=== PATIENT | male | born 1990 | race Caucasian/White ===

== ENCOUNTER 2018-09-26 23:30 | Emergency (ER) | payer OTHER ==
--- NOTE | 2018-09-27 01:10 | ER ---
Nurse's Notes [facility] Name: Sameer Gaona Age: 28 yrs Sex: Male : 1990 Arrival Date: 09/26/2018 Time: 23:37 Bed 18 Private MD: Diagnosis: Influenza due to identified novel influenza A virus Presentation: 09/26 23:37 Presenting complaint: Patient states: Flu like symptoms that began yesterday, states lp1 feeling like its harder to get a deep breath; Fever of 101 at 0400 today; diarrhea, nausea, nasal congestion. Transition of care: patient was not received from another setting of care. Onset of symptoms was September 25, 2018. Risk Assessment: Do you want to hurt yourself or someone else? Patient reports no desire to harm self or others. Initial Sepsis Screen: Does the patient meet any 2 criteria? No. Patient's initial sepsis screen is negative. Does the patient have a suspected source of infection? No. Patient's initial sepsis screen is negative. Care prior to arrival: None. 23:37 Method Of Arrival: Ambulatory lp1 23:37 Acuity: LAINEY 4 lp1 Historical: - Allergies: 23:39 No Known Allergies; lp1 - Home Meds: 23:39 None [Active]; lp1 - PMHx: 23:39 Asthma; lp1 - PSHx: 23:39 None; lp1 - Immunization history:: Adult Immunizations up to date. - Social history:: Smoking status: Patient/guardian denies using tobacco. - Ebola Screening: : No symptoms or risks identified at this time. Screenin:45 Abuse screen: Denies threats or abuse. Denies injuries from another. Nutritional ed1 screening: No deficits noted. Tuberculosis screening: No symptoms or risk factors identified. Fall Risk None identified. Assessment: 23:45 General: Appears in no apparent distress. Behavior is calm, cooperative, Reports fever ed1 for 12-24 hours, feeling ill for 1-2 days. Pain: Denies pain. Neuro: Level of Consciousness is awake, alert, obeys commands, Oriented to person, place, time, situation. Cardiovascular: Denies chest pain, Heart tones S1 S2 present. Respiratory: Reports shortness of breath cough that is Airway is patent Respiratory effort is even, unlabored, Respiratory pattern is regular, symmetrical, Breath sounds are clear bilaterally. GI: No signs and/or symptoms were reported involving the gastrointestinal system. : No signs and/or symptoms were reported regarding the genitourinary system. EENT: Oral mucosa is moist. Derm: Skin is intact, is healthy with good turgor, Skin is dry, Skin is normal, Skin temperature is warm. 03 01:07 Reassessment: Patient appears in no apparent distress at this time. No changes from ed1 previously documented assessment. Patient and/or family updated on plan of care and expected duration. Pain level reassessed. Patient is alert, oriented x 3, equal unlabored respirations, skin warm/dry/pink. Patient states symptoms have not improved. Vital Signs: 09/26 23:39 BP 130 / 84; Pulse 88; Resp 18; Temp 98.7(O); Pulse Ox 98% on R/A; Weight 65.77 kg (R); lp1 Height 5 ft. 10 in. (177.80 cm); Pain 0/10; 09/27 01:07 BP 131 / 84; Pulse 81; Resp 16; Pulse Ox 99% on R/A; Pain 0/10; ed1 0305 23:39 Body Mass Index 20.81 (65.77 kg, 177.80 cm) lp1 ED Course: 03 23:37 Patient arrived in ED. ag3 23:39 Triage completed. lp1 23:39 Arm band placed on. lp1 23:41 Fanny Suero, RN is Primary Nurse. ed1 23:45 Patient has correct armband on for positive identification. ed1 23:48 Wiley Whiting PA is PHCP. cp 23:48 Wiley Beatty MD is Attending Physician. cp 03 00:06 Flu and/or RSV swab sent to lab. Strep swab sent to lab. lt1 00:42 Strep Sent. ed1 00:42 Influenza Screen (a \T\ B) Sent. ed1 01:20 No provider procedures requiring assistance completed. Patient did not have IV access ed1 during this emergency room visit. Administered Medications: 01:18 Drug: Tamiflu 75 mg Route: PO; ed1 01:18 Follow up: Response: Medication administered at discharge. ed1 Outcome: 01:10 Discharge ordered by . cp 01:20 Discharged to home ambulatory. ed1 01:20 Condition: good 01:20 Discharge instructions given to patient, Instructed on discharge instructions, follow up and referral plans. medication usage, Demonstrated understanding of instructions, follow-up care, medications, Prescriptions given X 2. 01:21 Patient left the ED. ed1 Signatures: Fanny Suero RN RN ed1 Katherine Uribe RN RN lp1 Wiley Whiting PA PA cp Gomez, Alice ag3 Angela Dos Santos lt1
--- NOTE | 2018-09-27 01:10 | EDPHYS ---
Physician Documentation [facility] Name: Sameer Gaona Age: 28 yrs Sex: Male : 1990 Arrival Date: 09/26/2018 Time: 23:37 Bed 18 Private MD: ED Physician Wiley Beatty HPI: 09/27 00:05 This 28 yrs old Male presents to ER via Ambulatory with complaints of Flu cp Symptoms. 00:05 The patient or guardian reports cough, that is intermittent, flu symptoms, low-grade cp fever, body aches. 00:05 Onset: The symptoms/episode began/occurred yesterday. Associated signs and symptoms: cp Pertinent positives: diarrhea, sore throat, Pertinent negatives: chest pain, vomiting. Historical: - Allergies: 09/26 23:39 No Known Allergies; lp1 - Home Meds: 23:39 None [Active]; lp1 - PMHx: 23:39 Asthma; lp1 - PSHx: 23:39 None; lp1 - Immunization history:: Adult Immunizations up to date. - Social history:: Smoking status: Patient/guardian denies using tobacco. - Ebola Screening: : No symptoms or risks identified at this time. ROS: 09/27 00:10 Constitutional: Positive for body aches, Negative for fever, poor PO intake. cp 00:10 Eyes: Negative for injury, pain, redness, and discharge. cp 00:10 ENT: Positive for sore throat, Negative for drainage from ear(s), ear pain, sinus pain, difficulty swallowing, difficulty handling secretions. 00:10 Neck: Negative for pain with movement, pain at rest, stiffness. 00:10 Cardiovascular: Negative for chest pain. 00:10 Respiratory: Positive for cough, Negative for wheezing. 00:10 Abdomen/GI: Positive for nausea, diarrhea, Negative for abdominal pain, vomiting, constipation. 00:10 Skin: Negative for cellulitis, rash. 00:10 Neuro: Negative for altered mental status, headache. 00:10 All other systems are negative. Exam: 00:15 Constitutional: The patient appears in no acute distress, alert, awake, non-toxic, well cp developed, well nourished. 00:15 Head/Face: Normocephalic, atraumatic. cp 00:15 Eyes: Periorbital structures: appear normal, Conjunctiva: normal, no exudate, no injection, Sclera: no appreciated abnormality, Lids and lashes: appear normal, bilaterally. 00:15 ENT: External ear(s): are unremarkable, Ear canal(s): are normal, clear, TM's: bulging, is not appreciated, bilaterally, dullness, bilaterally, erythema, is not appreciated, bilaterally, Nose: is normal, Mouth: Lips: moist, Oral mucosa: moist, Posterior pharynx: Airway: no evidence of obstruction, patent, Tonsils: with erythema, no enlargement, no exudate, swelling, is not appreciated, erythema, that is moderate, exudate, is not appreciated. 00:15 Neck: ROM/movement: is normal, is supple, without pain, no range of motions limitations, no meningismus, no nuchal rigidity. 00:15 Chest/axilla: Inspection: normal, Palpation: is normal, no crepitus, no tenderness. 00:15 Cardiovascular: Rate: normal, Rhythm: regular. 00:15 Respiratory: the patient does not display signs of respiratory distress, Respirations: normal, no use of accessory muscles, no retractions, no splinting, no tachypnea, labored breathing, is not present, Breath sounds: are clear throughout, no decreased breath sounds, no stridor, no wheezing. 00:15 Abdomen/GI: Inspection: abdomen appears normal, Palpation: abdomen is soft and non-tender, in all quadrants. 00:15 Skin: cellulitis, is not appreciated, no rash present. Vital Signs: 09/26 23:39 BP 130 / 84; Pulse 88; Resp 18; Temp 98.7(O); Pulse Ox 98% on R/A; Weight 65.77 kg (R); lp1 Height 5 ft. 10 in. (177.80 cm); Pain 0/10; 09/27 01:07 BP 131 / 84; Pulse 81; Resp 16; Pulse Ox 99% on R/A; Pain 0/10; ed1 09/26 23:39 Body Mass Index 20.81 (65.77 kg, 177.80 cm) lp1 MDM: 09/26 23:48 Patient medically screened. cp 09/27 00:00 Differential Diagnosis: Bronchitis Influenza Pharyngitis Otitis Media Viral Syndrome cp Pneumonia. 01:10 Data reviewed: vital signs, nurses notes, lab test result(s), and as a result, I will cp discharge patient. 01:10 Counseling: I had a detailed discussion with the patient and/or guardian regarding: the cp historical points, exam findings, and any diagnostic results supporting the discharge/admit diagnosis, lab results, to return to the emergency department if symptoms worsen or persist or if there are any questions or concerns that arise at home. 09/26 23:58 Order name: Influenza Screen (a \T\ B) 09/26 23:58 Order name: Strep cp 09/26 23:58 Order name: Influenza Screen (A [facility] 09/26 23:58 Order name: Group A Streptococcus Rapid Sc [facility] 09/27 00:56 Order name: Throat Culture [facility] Administered Medications: 01:18 Drug: Tamiflu 75 mg Route: PO; ed1 01:18 Follow up: Response: Medication administered at discharge. ed1 Disposition: 09/27/18 01:10 Discharged to Home. Impression: Influenza due to identified novel influenza A virus. - Condition is Stable. - Discharge Instructions: Influenza, Adult. - Prescriptions for Ibuprofen 800 mg Oral Tablet - take 1 tablet by ORAL route every 8 hours As needed take with food; 30 tablet. Tamiflu 75 mg Oral Capsule - take 1 tablet by ORAL route every 12 hours for 5 days; 10 tablet. - Work release form, Medication Reconciliation Form, Thank You Letter, Antibiotic Education, Prescription Opioid Use form. - Follow up: Private Physician; When: 2 - 3 days; Reason: Worsening of condition. - Problem is new. - Symptoms are unchanged. Addendum: 09/29/2018 07:19 Co-signature as Attending Physician, Wiley Beatty MD I agree with the assessment and c murphy plan of care. Signatures: Dispatcher [employer] [facility] Wiley Beatty MD MD cha Riggs, Erika RN RN ed1 Katherine Uribe RN RN lp1 Wiley Whiting PA PA cp Corrections: (The following items were deleted from the chart) 09/27 01:21 01:10 09/27/2018 01:10 Discharged to Home. Impression: Influenza due to identified ed1 novel influenza A virus. Condition is Stable. Forms are Medication Reconciliation Form, Thank You Letter, Antibiotic Education, Prescription Opioid Use. Follow up: Private Physician; When: 2 - 3 days; Reason: Worsening of condition. Problem is new. Symptoms are unchanged. cp
[2018-09-27] MEDS ORDERED: OSELTAMIVIR 75 MG CAP ONE (01:25)
== END 2018-09-27 01:21 | disposition home or self-care (01) ==
LOC: ER 23:30
DX: J10.1 Influenza due to other identified influenza virus with other respiratory manifestations (principal)
CPT/HCPCS: 87070; 87081; 87804; 99283

== ENCOUNTER 2020-10-10 03:04 | Inpatient (IN) | payer OTHER, SELFPAY ==
[2020-10-10] MEDS ORDERED: MORPHINE 4 MG/ML SYR ONE (03:56)
[2020-10-10] MEDS ORDERED: ONDANSETRON 4 MG/2 ML VIAL ONE ×2 (03:56→12:44)
[2020-10-10] MEDS ORDERED: NA CHLORIDE 0.9% 1,000 ML ONE (03:56)
[2020-10-10 04:04] LABS: Absolute Lymphocytes (CBC) 1.3 K/uL (0.7-4.9); Basophils % 0.7 % (0-1.3); Hematocrit 44.5 % (39.6-49.0); Lymphocytes % 10.1 % (15.3-44.8); MPV 8.7 fL (7.6-11.3); RBC Red Blood Cell Count 5.14 M/uL (4.33-5.43)
[2020-10-10 04:15] LABS: Alkaline Phosphatase ND U/L (45-117)
[2020-10-10 04:38] LABS: ALT/SGPT 39 U/L (12-78); AST/SGOT 18 U/L (15-37); Albumin 4.3 g/dL (3.4-5.0); BUN Blood Urea Nitrogen 11 mg/dL (7-18); Bicarbonate 28 mmol/L (21-32); Bilirubin Direct 0.2 mg/dL (0-0.2); Bilirubin Total 0.9 mg/dL (0.2-1.0); Glucose Level 105 mg/dL (74-106); Lipase 81 U/L (73-393); Potassium 3.4 mmol/L (3.5-5.1); Protein, Total 7.8 g/dL (6.4-8.2); Sodium Level 136 mmol/L (136-145)
--- NOTE | 2020-10-10 06:16 | EDPHYS ---
Physician Documentation [facility] Name: Sameer Gaona Age: 30 yrs Sex: Male : 1990 Arrival Date: 10/10/2020 Time: 03:07 Bed 14 Private MD: ED Physician Ha Cadet HPI: 10/10 03:59 This 30 yrs old Male presents to ER via Ambulatory with complaints of mh7 Abdominal Pain. 03:59 The patient presents with abdominal pain right lower quadrant. Onset: The mh7 symptoms/episode began/occurred yesterday, at 18:00. 03:59 The symptoms do not radiate. Associated signs and symptoms: Pertinent positives: nausea mh7 and vomiting, Pertinent negatives: anorexia, blood in stools, chest pain, constipation, diarrhea, dysuria, fever, headache, hematuria, nausea, palpitations, shortness of breath, testicular pain, vomiting, vomiting blood. The symptoms are described as intermittent, vague, waxing/waning. Modifying factors: The symptoms are alleviated by nothing, the symptoms are aggravated by nothing. Severity of pain: At its worst the pain was moderate last night, in the emergency department the pain is unchanged. Historical: - Allergies: 03:26 No Known Allergies; dm5 - Home Meds: 03:26 None [Active]; dm5 - PMHx: 03:26 Asthma; dm5 - PSHx: 03:26 None; dm5 - Immunization history:: Adult Immunizations up to date. - Social history:: Smoking status: Patient denies any tobacco usage or history of. ROS: 03:59 Constitutional: Negative for fever, chills, and weight loss, Eyes: Negative for injury, mh7 pain, redness, and discharge, ENT: Negative for injury, pain, and discharge, Neck: Negative for injury, pain, and swelling, Cardiovascular: Negative for chest pain, palpitations, and edema, Respiratory: Negative for shortness of breath, cough, wheezing, and pleuritic chest pain, Back: Negative for injury and pain, : Negative for injury, bleeding, discharge, and swelling, MS/Extremity: Negative for injury and deformity, Skin: Negative for injury, rash, and discoloration, Neuro: Negative for headache, weakness, numbness, tingling, and seizure, Psych: Negative for depression, anxiety, suicide ideation, homicidal ideation, and hallucinations, Allergy/Immunology: Negative for hives, rash, and allergies, Endocrine: Negative for neck swelling, polydipsia, polyuria, polyphagia, and marked weight changes, Hematologic/Lymphatic: Negative for swollen nodes, abnormal bleeding, and unusual bruising. Exam: 03:59 Constitutional: This is a well developed, well nourished patient who is awake, alert, mh7 and in no acute distress. Head/Face: Normocephalic, atraumatic. Eyes: Pupils equal round and reactive to light, extra-ocular motions intact. Lids and lashes normal. Conjunctiva and sclera are non-icteric and not injected. Cornea within normal limits. Periorbital areas with no swelling, redness, or edema. Neck: Trachea midline, no thyromegaly or masses palpated, and no cervical lymphadenopathy. Supple, full range of motion without nuchal rigidity, or vertebral point tenderness. No Meningismus. Chest/axilla: Normal chest wall appearance and motion. Nontender with no deformity. No lesions are appreciated. Cardiovascular: Regular rate and rhythm with a normal S1 and S2. No gallops, murmurs, or rubs. Normal PMI, no JVD. No pulse deficits. Respiratory: Lungs have equal breath sounds bilaterally, clear to auscultation and percussion. No rales, rhonchi or wheezes noted. No increased work of breathing, no retractions or nasal flaring. 03:59 Back: No spinal tenderness. No costovertebral tenderness. Full range of motion. Skin: Warm, dry with normal turgor. Normal color with no rashes, no lesions, and no evidence of cellulitis. MS/ Extremity: Pulses equal, no cyanosis. Neurovascular intact. Full, normal range of motion. Neuro: Awake and alert, GCS 15, oriented to person, place, time, and situation. Cranial nerves II-XII grossly intact. Motor strength 5/5 in all extremities. Sensory grossly intact. Cerebellar exam normal. Normal gait. Psych: Awake, alert, with orientation to person, place and time. Behavior, mood, and affect are within normal limits. 03:59 Abdomen/GI: Inspection: abdomen appears normal, Bowel sounds: normal, Palpation: moderate abdominal tenderness, in the right lower quadrant, mass, is not appreciated, rebound tenderness, is not appreciated, voluntary guarding, is not appreciated, involuntary guarding, is not appreciated, no appreciated organomegaly, Rectal exam: the exam is deferred, because of patient request, Indicators: McBurney's point is not tender, Mcclure's sign is negative, Rovsing's sign is negative, Obturator sign is negative, Psoas sign is negative, Liver: no appreciated palpable abnormalities, Hernia: not appreciated. Vital Signs: 03:24 BP 127 / 88; Pulse 82; Resp 18; Temp 98.4; Pulse Ox 98% on R/A; Pain 6/10; dm5 08:34 BP 106 / 59; Pulse 84; Resp 16 S; Pulse Ox 99% on R/A; jd3 09:28 BP 117 / 64; Pulse 83; Resp 17 S; Pulse Ox 99% on R/A; jd3 MDM: 06:13 Differential diagnosis: appendicitis, bowel obstruction, diverticulitis. Data reviewed: [facility] vital signs, nurses notes, lab test result(s), amylase and lipase, CBC, electrolytes, radiologic studies, CT scan. Data interpreted: Pulse oximetry: on room air is 98 %. Interpretation: normal. Counseling: I had a detailed discussion with the patient and/or guardian regarding: the historical points, exam findings, and any diagnostic results supporting the discharge/admit diagnosis, lab results, radiology results, the need for further work-up and treatment in the hospital. Response to treatment: the patient's symptoms have markedly improved after treatment. 06:[address] [facility] 10/10 03:32 Order name: Basic Metabolic Panel; Complete Time: 05:11 [facility] 10/10 03:32 Order name: CBC with Diff; Complete Time: 04:19 [facility] 10/10 03:32 Order name: Hepatic Function; Complete Time: 05:54 [facility] 10/10 03:32 Order name: Lipase; Complete Time: 05:54 [facility] 10/10 07:05 Order name: Urine Dipstick--Ancillary (enter results) 10/10 07:05 Order name: Urine --Ancillary (enter results) 10/10 04:58 Order name: Abdomen [facility] 10/10 07:41 Order name: COVID-19 : Document "Date of Symptom Onset" if Symptomatic. 10/10 08:09 Order name: CORONAVIRUS [facility] 10/10 08:58 Order name: SARS-COV-2 RT PCR [facility] 10/10 09:57 Order name: Urine --Ancillary [facility] 10/10 09:57 Order name: Urine Dipstick-Ancillary [facility] 10/10 03:32 Order name: IV Saline Lock; Complete Time: 05:24 [facility] 10/10 03:32 Order name: Labs collected and sent; Complete Time: 05:24 [facility] 10/10 03:32 Order name: Urine Dipstick-Ancillary (obtain specimen); Complete Time: 07:04 [facility] 10/10 06:23 Order name: NPO EDMS Administered Medications: 03:45 Drug: NS 0.9% 1000 ml Route: IV; Rate: 1000 ml; Site: left antecubital; dm5 06:35 Follow up: Response: No adverse reaction; IV Status: Completed infusion; IV Intake: mg2 1000ml 03:47 Drug: Zofran (Ondansetron) 4 mg Route: IVP; Site: left antecubital; dm5 06:34 Follow up: Response: No adverse reaction mg2 03:49 Drug: morphine 4 mg Route: IVP; Site: left antecubital; dm5 06:33 Follow up: Response: No adverse reaction mg2 06:33 Drug: Zosyn 3.375 grams Route: IVPB; Infused Over: 60 mins; Site: left antecubital; mg2 07:30 Follow up: Response: No adverse reaction; IV Status: Completed infusion jd3 Disposition: 10/10/20 06:15 Hospitalization ordered by Franc Kay for Inpatient Admission. Preliminary diagnosis is Acute appendicitis. - Bed requested for Telemetry/MedSurg (Inpatient). - Status is Inpatient Admission. jd3 - Condition is Stable. - Problem is new. - Symptoms have improved. Signatures: Dispatcher [employer] [facility] Sunni May, RN RN dm5 Preet Kay, LOCOMOTIVE OBSERVER-C LOCOMOTIVE OBSERVER-Cla1 Buck Jolley RN RN jd3 Magno Cervantes RN RN mg2 Ha Cadet MD MD 7 Sirisha Garcia RN RN rd1 Corrections: (The following items were deleted from the chart) 04:58 03:33 Abdomen W/ Con+CT.RAD.BRZ ordered. EDNJ EDNJ 09:19 06:15 Hospitalization Ordered by Franc Kay MD for Inpatient Admission. Preliminary rd1 diagnosis is Acute appendicitis. Bed requested for Telemetry/MedSurg (Inpatient). Status is Inpatient Admission. Condition is Stable. Problem is new. Symptoms have improved. mh7 10:22 09:19 10/10/2020 06:15 Hospitalization Ordered by Franc Kay MD for Inpatient jd3 Admission. Preliminary diagnosis is Acute appendicitis. Bed requested for Telemetry/MedSurg (Inpatient). Status is Inpatient Admission. Condition is Stable. Problem is new. Symptoms have improved. rd1
--- NOTE | 2020-10-10 06:16 | ER ---
Nurse's Notes [facility] Name: Sameer Gaona Age: 30 yrs Sex: Male : 1990 Arrival Date: 10/10/2020 Time: 03:07 Bed 14 Private MD: Diagnosis: Acute appendicitis Presentation: 10/10 03:24 Chief complaint: Patient states: abdominal pain x the last 10 hours, worse over the dm5 last 2 hours moving to [facility], pt also reports n/v Pain rated at 6/10. Coronavirus screen: nausea, vomiting. Client presents with at least one sign or symptom that may indicate coronavirus-19. Standard/surgical mask placed on the client. Ebola Screen: Patient negative for fever greater than or equal to 101.5 degrees Fahrenheit, and additional compatible Ebola Virus Disease symptoms Patient denies exposure to infectious person. Patient denies travel to an Ebola-affected area in the 21 days before illness onset. No symptoms or risks identified at this time. Initial Sepsis Screen: Does the patient meet any 2 criteria? No. Patient's initial sepsis screen is negative. Does the patient have a suspected source of infection? Yes: Acute abdominal pain. Risk Assessment: Do you want to hurt yourself or someone else? Patient reports no desire to harm self or others. Onset of symptoms was October 10, 2020. 03:24 Method Of Arrival: Ambulatory dm5 03:24 Acuity: LAINEY 3 dm5 Triage Assessment: 03:26 General: Appears in no apparent distress. Behavior is calm, cooperative. Pain: dm5 Complains of pain in right lower quadrant Pain currently is 6 out of 10 on a pain scale. EENT: No deficits noted. Neuro: No deficits noted. Cardiovascular: No deficits noted. Respiratory: No deficits noted. Airway is patent Respiratory effort is even, unlabored, Respiratory pattern is regular, symmetrical. GI: Reports lower abdominal pain, nausea, vomiting. Derm: Skin is pink, warm \T\ dry. Historical: - Allergies: 03:26 No Known Allergies; dm5 - Home Meds: 03:26 None [Active]; dm5 - PMHx: 03:26 Asthma; dm5 - PSHx: 03:26 None; dm5 - Immunization history:: Adult Immunizations up to date. - Social history:: Smoking status: Patient denies any tobacco usage or history of. Screenin:34 Abuse screen: Denies threats or abuse. Nutritional screening: No deficits noted. jd3 Tuberculosis screening: No symptoms or risk factors identified. Fall Risk IV access (20 points). Ambulatory Aid- None/Bed Rest/Nurse Assist (0 pts). Gait- Normal/Bed Rest/Wheelchair (0 pts) Mental Status- Oriented to own ability (0 pts). Total Gonzales Fall Scale indicates No Risk (0-24 pts). Assessment: 07:45 General: Appears in no apparent distress. comfortable, Behavior is calm, cooperative, jd3 appropriate for age. Pain: Complains of pain in abdomen Quality of pain is described as aching. Neuro: Level of Consciousness is awake, alert, obeys commands, Oriented to person, place, time, situation. Cardiovascular: Denies chest pain, Capillary refill < 3 seconds Patient's skin is warm and dry. Respiratory: Airway is patent Respiratory effort is even, unlabored, Respiratory pattern is regular, symmetrical, Denies cough, shortness of breath. GI: Abdomen is tender to palpation in right lower quadrant. : No signs and/or symptoms were reported regarding the genitourinary system. EENT: No signs and/or symptoms were reported regarding the EENT system. Derm: Skin is intact, Skin is dry, Skin is normal, Skin temperature is warm. Musculoskeletal: Circulation, motion, and sensation intact. Range of motion: intact in all extremities. 08:34 Reassessment: Patient appears in no apparent distress at this time. No changes from jd3 previously documented assessment. Patient and/or family updated on plan of care and expected duration. Pain level reassessed. Patient is alert, oriented x 3, equal unlabored respirations, skin warm/dry/pink. awaiting admission/surgery. 09:28 Reassessment: Patient appears in no apparent distress at this time. No changes from jd3 previously documented assessment. Patient and/or family updated on plan of care and expected duration. Pain level reassessed. Patient is alert, oriented x 3, equal unlabored respirations, skin warm/dry/pink. 09:54 Reassessment: report attempt made, called twice with no answer, charge nurse notified. jd3 Vital Signs: 03:24 BP 127 / 88; Pulse 82; Resp 18; Temp 98.4; Pulse Ox 98% on R/A; Pain 6/10; dm5 08:34 BP 106 / 59; Pulse 84; Resp 16 S; Pulse Ox 99% on R/A; jd3 09:28 BP 117 / 64; Pulse 83; Resp 17 S; Pulse Ox 99% on R/A; jd3 ED Course: 03:07 Patient arrived in ED. cl3 03:26 Triage completed. dm5 03:26 Ha Cadet MD is Attending Physician. mh7 03:26 Arm band placed on. dm5 03:28 Sunni May, RN is Primary Nurse. dm5 03:41 Inserted saline lock: 20 gauge in left antecubital area, using aseptic technique. Blood mw2 collected. 05:18 Abdomen In Process Unspecified. EDMS 06:14 Franc Kay MD is Hospitalizing Provider. mh7 07:43 Primary Nurse role handed off by Sunni May, RN eb 08:32 Buck Jolley RN is Primary Nurse. jd3 08:34 Patient has correct armband on for positive identification. Bed in low position. Call jd3 light in reach. Side rails up X 1. Pulse ox on. NIBP on. 10:21 No provider procedures requiring assistance completed. Patient admitted, IV remains in jd3 place. Administered Medications: 03:45 Drug: NS 0.9% 1000 ml Route: IV; Rate: 1000 ml; Site: left antecubital; dm5 06:35 Follow up: Response: No adverse reaction; IV Status: Completed infusion; IV Intake: mg2 1000ml 03:47 Drug: Zofran (Ondansetron) 4 mg Route: IVP; Site: left antecubital; dm5 06:34 Follow up: Response: No adverse reaction mg2 03:49 Drug: morphine 4 mg Route: IVP; Site: left antecubital; dm5 06:33 Follow up: Response: No adverse reaction mg2 06:33 Drug: Zosyn 3.375 grams Route: IVPB; Infused Over: 60 mins; Site: left antecubital; mg2 07:30 Follow up: Response: No adverse reaction; IV Status: Completed infusion jd3 Intake: 06:35 IV: 1000ml; Total: 1000ml. mg2 Outcome: 06:15 Decision to Hospitalize by Provider. 7 10:21 Admitted to Med/surg accompanied by tech, via wheelchair, room 425, with chart, Report jd3 called to Amber HUYNH 10:21 Condition: stable 10:21 Instructed on the need for admit, Demonstrated understanding of instructions. 10:22 Patient left the ED. edward Signatures: Dispatcher [employer] Sunni Becerra, RN RN dm5 Buck Jolley RN RN jd3 Sandy Cottrell mw2 Sahara Irene Michele, RN RN mg2 Nav Tao 3 Ha Cadet MD MD mh7
[2020-10-10] MEDS ORDERED: MORPHINE 4 MG/ML SYR IV PRN (06:19)
[2020-10-10] MEDS ORDERED: ONDANSETRON 4 MG/2 ML VIAL IV PRN (06:19)
[2020-10-10] MEDS ORDERED: PIPER/TAZO/NS 3.375gm 3.375 GM/100 ML BAG IVPB SCH (06:45)
[2020-10-10] MEDS ORDERED: PIPER/TAZO/NS 3.375gm 3.375 GM/100 ML BAG ONE (06:48)
[2020-10-10] MEDS: D5 0.45 NS 1,000 ML IV SCH ×3 (07:00→23:14)
[2020-10-10 09:56] LABS: Urine Blood TRACE (NEG); Urine Glucose NEGATIVE (NEG); Urine Protein NEGATIVE (NEG); Urine Specific Gravity 1.015 (1.005-1.030)
[2020-10-10] MEDS ORDERED: Ringers Lactate 1,000 ML IV ONE ×2 (11:19→12:57)
[2020-10-10] MEDS ORDERED: propofoL 200 MG/20 ML VIAL IV ONE (11:50)
[2020-10-10] MEDS ORDERED: ROCURONIUM 50 MG/5 ML VIAL IV ONE (11:51)
[2020-10-10] MEDS ORDERED: MIDAZOLAM HCL 2 MG/2 ML INJ ONE (11:51)
[2020-10-10] MEDS ORDERED: FENTANYL CITR 100 MCG/2 ML ONE ×2 (11:51→12:58)
[2020-10-10] MEDS ORDERED: LIDOCAINE 1% MPF 5 ML VIAL ONE (11:51)
[2020-10-10] MEDS ORDERED: SUCCINYLCHOLINE 20 MG/ML (10 ML) IV ONE (12:00)
--- NOTE | 2020-10-10 12:21 | P.HP ---
Date of Service: 10/10/20 PC: This 30-year-old male presents emergency room with severe right lower quadrant abdominal pain for diagnosis and treatment. HPC: Patient in feeling well until yesterday around 7 o'clock in the evening. Noticed he had right lower quadrant abdominal pain. Intensified and was associated with some nausea. Came to the emergency room for evaluation treatment. PMH: Negative PSHx: Getting SOC: Unknown allergies SYS REVIEW: No cough, wheeze, shortness of breath. No chest pain or palpitations. No urinary complaints. O/E wake alert uncomfortable at the moment HEENT: Anicteric Chest: Clear ABD: Tender with guarding in the right lower quadrant LOCO: Intact DATA: CT scan correlates with clinical findings of acute abdomen with probable appendicitis IMPRESSION: Acute abdomen PLAN: I will take him the operating room for laparoscopic possible open appendectomy. The risks of this procedure have been discussed. The possibility of bleeding, infection, injury to intestines blood vessels and surrounding structures were outlined. The possibility of abscess formation and need for further surgeries and procedures was discussed. He understands and wants us to proceed.
[2020-10-10] MEDS ORDERED: KETOROLAC 30 MG/ML INJ ONE (12:43)
[2020-10-10] MEDS ORDERED: dexAMETHasone 10 MG/ML VIAL ONE (12:43)
[2020-10-10] MEDS ORDERED: GLYCOPYRROLATE 0.2 MG/ML SYR ONE (13:02)
--- NOTE | 2020-10-10 13:10 | P.OP ---
Preoperative diagnosis: Acute abdomen Postoperative diagnosis: Acute appendicitis Primary procedure: Laparoscopic appendectomy Secondary procedure: Rita block Anesthesia: General Estimated blood loss: Less than 10 cc Specimen: 1 appendix and contents Operative Technique: The patient was brought to the operating room and placed supine on the table. After the induction of adequate general endotracheal anesthesia, the area of the abdomen was prepped with a DuraPrep solution, and he was draped in usual aseptic manner. A subumbilical incision was made. This was brought down through the skin and subcutaneous tissue. The Visiport was used to enter the peritoneal cavity and created pneumoperitoneum to approximately 12 mm of mercury. Under direct vision a 5 mm trocar was placed in the right upper upper quadrant, and another in the lower midline. The patient was then placed in Trendelenburg and rolled to the left. We were able to visualize the right lower quadrant. Tracing the tenia, we were able to see an acute inflamed appendix in the right lower quadrant. The appendix was gently grasped. The mesentery was taken down using blunt and sharp dissection as well as selective cautery. A window was now made in the mesentery of the appendix. The linear Stapler was now placed across the base of the appendix as we had isolated the area just at its junction with the cecum. The Stapler was fired. A vascular reload was now placed across the mesenteric of the appendix. After compressing for 15 seconds the instrument was fired. The specimen, having mean detached, was now placed into an Endo-Catch and brought out through the umbilical trocar. A Rita block was done of the anterior abdominal wall using 0.25% Marcaine. Attention was now turned back to the right lower quadrant. With the patient flat on the OR table the area was aspirated of the irrigating fluid. Attention was turned towards the emboli kiss. The trocar was removed and the facile defect was approximately 2 absorbable sutures placed using the Endo Close. At the end of the procedure the pneumoperitoneum was collapsed, the trocars removed, and rebekah were applied to the skin. He was in a stable condition when sent to the recovery room. Needle sponge instrument count were reported as correct. Complications: None Transferred to: Recovery Room Condition: Good
[2020-10-10] MEDS ORDERED: NEOSTIGMINE 1 MG/ML -5 ML ONE (13:16)
[2020-10-10] MEDS ORDERED: MEPERIDINE HCL 25 MG/ML SYR ONE (13:33)
[2020-10-10] MEDS: HYDROCODONE/APAP 7.5/325 MG TAB PO PRN ×2 (14:57→20:12)
[2020-10-10 15:18] VITALS: BMI 20.7
[2020-10-10] MEDS: PIPER/TAZO/NS 3.375gm 3.375 GM/100 ML BAG IVPB SCH (16:37)
[2020-10-11] MEDS: PIPER/TAZO/NS 3.375gm 3.375 GM/100 ML BAG IVPB SCH ×2 (00:28→09:30)
[2020-10-11] MEDS: HYDROCODONE/APAP 7.5/325 MG TAB PO PRN ×3 (01:25→10:55)
[2020-10-11 03:45] VITALS: O2SAT 100
[2020-10-11] MEDS: D5 0.45 NS 1,000 ML IV SCH (06:01)
--- NOTE | 2020-10-11 11:15 | RAD REPORT ---
EXAM DESCRIPTION: CT - Abdomen Pelvis W Contrast - 10/10/2020 6:45 am ADDENDUM #1 Findings reported to Eliza YIP via telephone by [facility] support October 10, 2020 6: 07 AM central time. Electronically signed by: Franc Santana DO 10/10/2020 6:10 AM CDT End of Addendum EXAM DESCRIPTION: Abdomen Pelvis W Contrast CLINICAL HISTORY: 30 years Male, ABD PAIN Comparison: None TECHNIQUE: Contiguous axial CT images of the abdomen and pelvis were obtained. Sagittal and coronal reformats were reviewed. This exam was performed according to our departmental dose-optimization pr ogram, which includes automated exposure control, adjustment of the mA and/or kV according to patient size and/or use of iterative reconstruction technique. FINDINGS: Lung bases: Clear. Liver: Unremarkable. No focal liver lesion. Gallbladder: Unremarkable. No gallstones. No gallbladder wall thickening or pericholecystic fluid. Spleen: Unremarkable Pancreas: Pancreas is unremarkable. Adrenal glands: Within normal limits. Kidneys/ureters: Nonobstructive 3 mm calculus in the interpolar right kidney. No hydronephrosis or ne phrolithiasis on the left. Stomach/small bowel/colon: Stomach is unremarkable. Small bowel is unremarkable. Colon is unremar kable. Appendix: Dilated appendix with wall thickening and surrounding inflammatory changes. Findings consis tent with acute appendicitis. Best visualized on coronal images 39 through 45. See annotated image 43 Peritoneum: No free fluid. Vascular structures: within normal limits Lymph nodes: No abnormal lymph nodes. Bladder: Unremarkable. Pelvic organs: No acute abnormality Bones: No acute osseous abnormality. Soft tissues: Unremarkable.. IMPRESSION: Acute appendicitis. No perforation. No drainable fluid collections. Electronically signed by: Franc Santana DO 10/10/2020 5:34 AM CDT Due to temporary technical issues with the PACS/Fluency reporting system, reports are being signed by the in house radiologist without review as a courtesy to ensure prompt reporting. The interpreting r adiologist is fully responsible for the content of the report.
[2020-10-11 12:04] VITALS: BP 140/61; TEMP 97.4
== END 2020-10-11 13:30 | disposition home or self-care (01) | DRG 343 ==
LOC: ER 03:04 → ERHOLD 06:32 → 4TH 10:08
PROVIDERS: ADMIT Surgery; ATTEND Surgery
PROC: 0DTJ4ZZ Resection of Appendix, Percutaneous Endoscopic Approach (ICD-10-PCS; principal; 2020-10-10 11:30)
DX: K35.80 Unspecified acute appendicitis (principal); Z20.822 Contact with and (suspected) exposure to COVID-19
CPT/HCPCS: 36415; 74177; 80048; 80076; 81003; 81025; 83690; 85025; 88304; 94010; 96361; 96365; 96375; 99285; J0330; J1100; J2175; J2250; J2405; J2543; J2704; J2710; J3010; J7030; J7120; J7799; Q9967; U0003

== ENCOUNTER 2020-10-21 09:45 | Observation (INO) | payer OTHER ==
[2020-10-21] MEDS ORDERED: ONDANSETRON 4 MG/2 ML VIAL ONE (10:28)
[2020-10-21] MEDS ORDERED: MORPHINE 4 MG/ML SYR ONE ×2 (10:28→11:44)
[2020-10-21] MEDS ORDERED: NA CHLORIDE 0.9% 1,000 ML ONE (10:29)
--- NOTE | 2020-10-21 10:51 | RAD REPORT ---
EXAM DESCRIPTION: CTAbdomen Pelvis W Contrast - 10/21/2020 10:41 am CLINICAL HISTORY: Abdominal pain. ABD PAIN COMPARISON: Abdomen Pelvis W Contrast dated 10/10/2020 TECHNIQUE: Biphasic CT imaging of the abdomen and pelvis was performed with 100 ml non-ionic IV cont rast. All CT scans are performed using dose optimization technique as appropriate and may include automated exposure control or mA/KV adjustment according to patient size. FINDINGS: The lung bases are clear. The liver, spleen, pancreas, adrenal glands and kidneys are within normal limits. No bowel obstruction, free air, free fluid or abscess. Mild fluid-filled small bowel loops noted. Arnulfo endectomy. Surgical skin rebekah are present. No evidence of significant lymphadenopathy. No suspicious bony findings. IMPRESSION: No acute intra-abdominal or pelvic finding. A mild small bowel ileus is possible.
[2020-10-21 11:05] LABS: Absolute Lymphocytes (CBC) 0.3 K/uL (0.7-4.9); Basophils % 0.3 % (0-1.3); Hematocrit 48.9 % (39.6-49.0); Lymphocytes % 1.3 % (15.3-44.8); MPV 9.4 fL (7.6-11.3); RBC Red Blood Cell Count 5.62 M/uL (4.33-5.43)
[2020-10-21 11:26] LABS: Albumin 4.7 g/dL (3.4-5.0); Bilirubin Direct 0.2 mg/dL (0-0.2); Bilirubin Total 0.7 mg/dL (0.2-1.0); Potassium 4.4 mmol/L (3.5-5.1); Protein, Total 8.8 g/dL (6.4-8.2)
[2020-10-21] MEDS ORDERED: METOCLOPRAMIDE 10 MG/2mL INJ ONE (11:43)
[2020-10-21 12:28] LABS: White Blood Cell Scan OK (OK)
[2020-10-21 12:29] LABS: Blood Morphology Comment NOT SEEN (NOT SEEN); Platelet Estimate ADEQ
--- NOTE | 2020-10-21 12:49 | ER ---
Nurse's Notes [facility] Name: Sameer Gaona Age: 30 yrs Sex: Male : 1990 Arrival Date: 10/21/2020 Time: 09:48 Bed 6 Private MD: Diagnosis: Acute Abdominal Pain;Ileus Presentation: 10/21 10:04 Chief complaint: Patient states: just had my appendix removed last week, i was due to tw2 have my rebekah out today , i called Dr. Vegas office to tell him that i was nauseous and having diarrhea, and he told me there was nothing he could give me and to come here, i just started this morning with diarrhea and vomiting up bile, no fever. Coronavirus screen: diarrhea, nausea, Client presents with at least one sign or symptom that may indicate coronavirus-19. Standard/surgical mask placed on the client. Provider contacted for isolation considerations. Ebola Screen: Patient denies travel to an Ebola-affected area in the 21 days before illness onset. Initial Sepsis Screen: Does the patient meet any 2 criteria? HR > 90 bpm. Does the patient have a suspected source of infection? No. Patient's initial sepsis screen is negative. Risk Assessment: Do you want to hurt yourself or someone else? Patient reports no desire to harm self or others. Onset of symptoms was October 21, 2020. 10:04 Method Of Arrival: Ambulatory tw2 10:04 Acuity: LAINEY 3 tw2 Triage Assessment: 10:07 General: Appears uncomfortable, slender, well groomed, Behavior is calm, cooperative, tw2 appropriate for age. Pain: Complains of pain in abdomen. EENT: No signs and/or symptoms were reported regarding the EENT system. Neuro: Level of Consciousness is awake, alert, obeys commands, Oriented to person, place, time, situation. Cardiovascular: Patient's skin is warm and dry. Respiratory: Airway is patent Respiratory effort is even, unlabored, Respiratory pattern is regular, symmetrical. GI: Reports nausea, vomiting, since this morning. : No signs and/or symptoms were reported regarding the genitourinary system. Derm: No signs and/or symptoms reported regarding the dermatologic system. Musculoskeletal: Circulation, motion, and sensation intact. Historical: - Allergies: 10:07 No Known Allergies; tw2 - Home Meds: 10:07 None [Active]; tw2 - PMHx: 10:07 Asthma; tw2 - PSHx: 10:07 None; tw2 - Immunization history:: Adult Immunizations. - Social history:: Smoking status: . Screenin:57 Abuse screen: Denies threats or abuse. Nutritional screening: No deficits noted. tw2 Tuberculosis screening: No symptoms or risk factors identified. Fall Risk None identified. Assessment: 10:08 Reassessment: see triage assessment. tw2 11:53 Reassessment: No changes from previously documented assessment. Patient and/or family tw2 updated on plan of care and expected duration. Pain level reassessed. Patient is alert, oriented x 3, equal unlabored respirations, skin warm/dry/pink. 12:50 Reassessment: Patient appears in no apparent distress at this time. No changes from tw2 previously documented assessment. Patient and/or family updated on plan of care and expected duration. Pain level reassessed. Patient is alert, oriented x 3, equal unlabored respirations, skin warm/dry/pink. 13:42 Reassessment: Patient appears in no apparent distress at this time. Patient and/or tw2 family updated on plan of care and expected duration. Pain level reassessed. Patient is alert, oriented x 3, equal unlabored respirations, skin warm/dry/pink. Patient states feeling better. Vital Signs: 10:04 BP 122 / 84; Pulse 127; Resp 18; Temp 98.0(O); Pulse Ox 98% on R/A; Weight 65.77 kg tw2 (R); Height 5 ft. 10 in. (177.80 cm); Pain 7/10; 11:53 BP 127 / 87; Pulse 104; Resp 17; Pulse Ox 96% on R/A; tw2 13:00 BP 116 / 65; Pulse 100; Resp 19; Pulse Ox 100% on R/A; tw2 13:42 BP 124 / 74; Pulse 103; Resp 17; Pulse Ox 96% on R/A; Pain 4/10; tw2 14:39 BP 125 / 78; Pulse 101; Resp 19; Pulse Ox 100% on R/A; tw2 10:04 Body Mass Index 20.81 (65.77 kg, 177.80 cm) tw2 ED Course: 09:48 Patient arrived in ED. am2 09:50 Mickail, Andrei, PA is PHCP. jmm 09:50 Stevie Luna MD is Attending Physician. jmm 09:56 Sameer Chung, RN is Primary Nurse. bp 09:56 Elizabeth Pritchett, RN is Primary Nurse. tw2 09:57 Arm band placed on. tw2 09:58 Bed in low position. Call light in reach. Pulse ox on. NIBP on. Warm blanket given. tw2 10:06 Triage completed. tw2 10:35 Initial lab(s) drawn, by va, sent to lab. Inserted saline lock: 20 gauge in right sr5 antecubital area, using aseptic technique. Blood collected. 10:41 CT Abd/Pelvis - IV Contrast Only In Process Unspecified. EDMS 12:38 First set of blood cultures drawn by me. tw2 12:48 Garrett Marquez DO is Hospitalizing Provider. jmm 13:05 Second set of blood cultures drawn by va. tw2 14:55 Awaiting: unsuccessful attempt to call report at this time. tw2 15:10 No provider procedures requiring assistance completed. Patient admitted, IV remains in tw2 place. Administered Medications: 10:34 Drug: NS 0.9% 1000 ml Route: IV; Rate: 1 bolus; Site: right antecubital; sr5 12:44 Follow up: Response: No adverse reaction; IV Status: Completed infusion; IV Intake: tw2 1000ml 10:34 Drug: Zofran (Ondansetron) 4 mg Route: IVP; Site: right antecubital; sr5 12:43 Follow up: Response: No adverse reaction; Nausea unchanged tw2 10:34 Drug: morphine 4 mg Route: IVP; Site: right antecubital; sr5 12:42 Follow up: Response: No adverse reaction; Pain is decreased tw2 11:31 Drug: Reglan 10 mg {Note: in remaining 700 ml NS.} Route: IVP; Site: right antecubital; tw2 14:38 Follow up: Response: No adverse reaction tw2 13:05 Drug: Flagyl 500 mg Volume: 100 ml; Route: IVPB; Rate: 200 ml/hr; Infused Over: 30 tw2 mins; Site: right antecubital; 13:40 Follow up: Response: No adverse reaction; IV Status: Completed infusion; IV Intake: tw2 100ml 13:40 Drug: Cipro (ciprofloxacin) 400 mg Volume: 200 ml; Route: IVPB; Infused Over: 60 mins; tw2 Site: right antecubital; 14:38 Follow up: Response: No adverse reaction; IV Status: Completed infusion; IV Intake: tw2 200ml 14:55 Not Given (Patient Refused): morphine 4 mg IVP once; RASS on ADMIN: Combtv4, Very tw2 Agttd3, Agttd2, Rstlss1, AlertClm0, Drwsy-1, Lt Sdtn-2, Mod Sdtn-3, Dp Sdtn-4, UnArsble-5 Intake: 12:44 IV: 1000ml; Total: 1000ml. tw2 13:40 IV: 100ml; Total: 1100ml. tw2 14:38 IV: 200ml; Total: 1300ml. tw2 Outcome: 12:49 Decision to Hospitalize by Provider. [facility] 15:10 Admitted to Med/surg accompanied by tech, room 229, Report called to AMINA Carreon tw2 15:10 Condition: stable 15:10 Instructed on the need for admit. 15:29 Patient left the ED. aa5 Signatures: Dispatcher [employer] EDMS Andrei Farrell PA PA Stephanie Crouch, RN RN aa5 Elizabeth Pritchett RN RN tw2 Dean Knowles RN RN sr5 Sherice Carlson am2 Sameer Chung RN RN bp
--- NOTE | 2020-10-21 12:49 | EDPHYS ---
Physician Documentation [facility] Name: Sameer Gaona Age: 30 yrs Sex: Male : 1990 Arrival Date: 10/21/2020 Time: 09:48 Bed 6 Private MD: ED Physician Stevie Luna HPI: 10/21 10:23 This 30 yrs old Male presents to ER via Ambulatory with complaints of jmm Vomiting. 10:23 The patient presents to the emergency department with nausea, vomiting, abdominal pain. jmm Onset: The symptoms/episode began/occurred acutely, today. Possible causes: recent surgery. The symptoms are aggravated by nothing. The symptoms are alleviated by nothing. Associated signs and symptoms: Pertinent negatives:. This is a 30 year old male with a history of asthma, 11 days s/p acute appendicitis that presents to the ED with complaints of generalized abdominal pain and acute onset vomiting. Symptoms began earlier this morning. . Historical: - Allergies: 10:07 No Known Allergies; tw2 - Home Meds: 10: None [Active]; tw2 - PMHx: 10:07 Asthma; tw2 - PSHx: 10:07 None; tw2 - Immunization history:: Adult Immunizations. - Social history:: Smoking status: . ROS: 10:23 Constitutional: Negative for fever, chills, and weight loss, Cardiovascular: Negative jmm for chest pain, palpitations, and edema, Respiratory: Negative for shortness of breath, cough, wheezing, and pleuritic chest pain. 10:23 Abdomen/GI: Positive for vomiting. 10:23 All other systems are negative. Exam: 10:23 Constitutional: This is a well developed, well nourished patient who is awake, alert, jmm and in no acute distress. Head/Face: atraumatic. Eyes: EOMI, no conjunctival erythema appreciated ENT: Moist Mucus Membranes Neck: Trachea midline, Supple Chest/axilla: Normal chest wall appearance and motion. Cardiovascular: Regular rate and rhythm. No edema appreciated Respiratory: Normal respirations, no respiratory distress appreciated 10:23 Back: Normal ROM Skin: General appearance color normal MS/ Extremity: Moves all extremities, no obvious deformities appreciated, no edema noted to the lower extremities Neuro: Awake and alert, normal gait Psych: Behavior is normal, Mood is normal, Patient is cooperative and pleasant 10:23 Abdomen/GI: Inspection: abdomen appears normal, Bowel sounds: normal, Palpation: soft, in all quadrants, Rectal exam: Vital Signs: 10:04 BP 122 / 84; Pulse 127; Resp 18; Temp 98.0(O); Pulse Ox 98% on R/A; Weight 65.77 kg tw2 (R); Height 5 ft. 10 in. (177.80 cm); Pain 7/10; 11:53 BP 127 / 87; Pulse 104; Resp 17; Pulse Ox 96% on R/A; tw2 13:00 BP 116 / 65; Pulse 100; Resp 19; Pulse Ox 100% on R/A; tw2 13:42 BP 124 / 74; Pulse 103; Resp 17; Pulse Ox 96% on R/A; Pain 4/10; tw2 14:39 BP 125 / 78; Pulse 101; Resp 19; Pulse Ox 100% on R/A; tw2 10:04 Body Mass Index 20.81 (65.77 kg, 177.80 cm) tw2 MDM: 09:59 Patient medically screened. [facility] 12:47 Data reviewed: vital signs, nurses notes. Counseling: I had a detailed discussion with [facility] the patient and/or guardian regarding: the historical points, exam findings, and any diagnostic results supporting the discharge/admit diagnosis, lab results, radiology results, the need for further work-up and treatment in the hospital. ED course: I discussed the patient with Dr. Kay whom will consult on admission. I discussed the patient with Dr. Marquez whom accepted admission. . 10/21 10:06 Order name: Basic Metabolic Panel; Complete Time: 11:56 [facility] 10/21 10:06 Order name: CBC with Diff; Complete Time: 12:36 [facility] 10/21 10:06 Order name: Hepatic Function; Complete Time: 11:56 [facility] 10/21 10:06 Order name: Lipase; Complete Time: 11:56 [facility] 10/21 11:14 Order name: CBC Smear Scan; Complete Time: 12:36 [facility] 10/21 12:07 Order name: Blood Culture Adult (2) [facility] 10/21 10:17 Order name: CT Abd/Pelvis - IV Contrast Only; Complete Time: 10:56 [facility] 10/21 12:13 Order name: COVID-19 : Document "Date of Symptom Onset" if Symptomatic. [facility] 10/21 13:47 Order name: SARS-COV-2 RT PCR; Complete Time: 15:30 [facility] 10/21 10:06 Order name: IV Saline Lock; Complete Time: 10:35 [facility] 10/21 10:06 Order name: Labs collected and sent; Complete Time: 10:35 [facility] Administered Medications: 10:34 Drug: NS 0.9% 1000 ml Route: IV; Rate: 1 bolus; Site: right antecubital; sr5 12:44 Follow up: Response: No adverse reaction; IV Status: Completed infusion; IV Intake: tw2 1000ml 10:34 Drug: Zofran (Ondansetron) 4 mg Route: IVP; Site: right antecubital; sr5 12:43 Follow up: Response: No adverse reaction; Nausea unchanged tw2 10:34 Drug: morphine 4 mg Route: IVP; Site: right antecubital; sr5 12:42 Follow up: Response: No adverse reaction; Pain is decreased tw2 11:31 Drug: Reglan 10 mg {Note: in remaining 700 ml NS.} Route: IVP; Site: right antecubital; tw2 14:38 Follow up: Response: No adverse reaction tw2 13:05 Drug: Flagyl 500 mg Volume: 100 ml; Route: IVPB; Rate: 200 ml/hr; Infused Over: 30 tw2 mins; Site: right antecubital; 13:40 Follow up: Response: No adverse reaction; IV Status: Completed infusion; IV Intake: tw2 100ml 13:40 Drug: Cipro (ciprofloxacin) 400 mg Volume: 200 ml; Route: IVPB; Infused Over: 60 mins; tw2 Site: right antecubital; 14:38 Follow up: Response: No adverse reaction; IV Status: Completed infusion; IV Intake: tw2 200ml 14:55 Not Given (Patient Refused): morphine 4 mg IVP once; RASS on ADMIN: Combtv4, Very tw2 Agttd3, Agttd2, Rstlss1, AlertClm0, Drwsy-1, Lt Sdtn-2, Mod Sdtn-3, Dp Sdtn-4, UnArsble-5 Disposition: 18:49 Co-signature as Attending Physician, Stevie Luna MD. ma2 Disposition: 10/21/20 12:49 Hospitalization ordered by Garrett Marquez for Observation. Preliminary diagnosis are Acute Abdominal Pain, Ileus. - Bed requested for Telemetry/MedSurg (observation). - Status is Observation. aa5 - Condition is Stable. - Problem is new. - Symptoms have improved. Signatures: Dispatcher [employer] EDME Aminta Palomo RN RN dw Andrei Farrell PA PA [facility] Stephanie Tovar, RN RN aa5 Elizabeth Pritchett RN RN tw2 Dean Knowles RN RN sr5 Stevie Luna MD MD ma2 Corrections: (The following items were deleted from the chart) 13:08 12:13 CORONAVIRUS ordered. [facility] 14:37 12:49 Hospitalization Ordered by Garrett Marquez DO for Observation. Preliminary diagnosis is Acute Abdominal Pain; Ileus. Bed requested for Telemetry/MedSurg (observation). Status is Observation. Condition is Stable. Problem is new. Symptoms have improved. [facility] 15:29 14:37 10/21/2020 12:49 Hospitalization Ordered by Garrett Marquez DO for Observation. aa5 Preliminary diagnosis is Acute Abdominal Pain; Ileus. Bed requested for Telemetry/MedSurg (observation). Status is Observation. Condition is Stable. Problem is new. Symptoms have improved. dw
[2020-10-21] MEDS ORDERED: CIPROFLOXACIN 400mg IV 400 MG/200 ML BAG IV ONE (13:03)
[2020-10-21] MEDS ORDERED: METRONIDAZOLE 500mg IVPB 500 MG/100 ML BAG IV ONE (13:03)
--- NOTE | 2020-10-21 13:08 | P.HP ---
Certification for Inpatient Patient admitted to: Observation With expected LOS: <2 Midnights Patient will require the following post-hospital care: None Practitioner: I am a practitioner with admitting privileges, knowledge of patient current condition, hospital course, and medical plan of care. Services: Services provided to patient in accordance with Admission requirements found in Title 42 Section 412.3 of the Code of Federal Regulations Patient History Date of Service: 10/21/20 Primary Care Provider: none; Surgery-Dr. Kay Reason for admission: Nausea, vomiting, abdominal pain History of Present Illness: 30-year-old male presented to the emergency room with nausea, vomiting, abdominal pain and diarrhea. Patient reports laparoscopic appendectomy on October 10. He reports after that time his bowel movements were slow. He did take some MiraLAX which improved. Patient had been doing well postoperatively but this morning woke up with increased nausea and vomiting. He reported diffuse abdominal pain. He also had some episode of diarrhea. Diarrhea was very watery. He denied any fever, shortness of breath, chest pain. Some chills noted. He reached out to his surgeon who recommended that the patient be seen in the ER for further evaluation. He was to follow-up with surgery today to have rebekah removed. In the ER patient was evaluated. White count elevated at 24,000. Hemoglobin stable. Sodium 140, potassium 4.4, BUN of 14, creatinine 1.1 with a GFR 77. Glucose 149. CT scan showed no bowel obstruction, free air, free fluid or abscess. Mild fluid-filled small bowel loops noted. No evidence of significant adenopathy. Mild small bowel ileus was suggested. Patient was given IV an tiemetic therapy and pain medication. Patient was admitted for observation. Allergies No Known Allergies Allergy (Unverified 04/19/17 19:24) Home Medications: NK [No Home Meds] 10/10/20 - Past Medical/Surgical History Diabetic: No -: Asthma -: Vapes -: Laparoscopic appendectomy Psychosocial/ Personal History: Patient is currently . He has no children. 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 - Family History Father -: Other (see notes) Notes: PAD - Social History Smoking Status: Current every day smoker Alcohol use: No CD- Drugs: No Caffeine use: Yes Place of Residence: Home Review of Systems General: Chills, As per HPI Eyes: Unremarkable ENT: Unremarkable Respiratory: Unremarkable Cardiovascular: Unremarkable Gastrointestinal: Nausea, Vomiting, Abdominal Pain, Diarrhea, As per HPI Genitourinary: Unremarkable Musculoskeletal: Unremarkable Integumentary: Unremarkable Neurological: Unremarkable Lymphatics: Unremarkable Physical Examination - Physical Exam General: Alert, In no apparent distress, Oriented x3, Cooperative HEENT: Atraumatic, Normocephalic, PERRLA, Mucous membr. moist/pink Neck: Supple Respiratory: Clear to auscultation bilaterally, Normal air movement Cardiovascular: Normal pulses, Regular rate/rhythm Gastrointestinal: Normal bowel sounds, Soft and benign, Non-distended, No masses, No rebound, No guarding, Tenderness (Mild tenderness to the periumbilical region.) Musculoskeletal: No contractures, No erythema, No tenderness, No warmth Integumentary: No tenderness/swelling, No erythema, No warmth, No cyanosis Neurological: Normal speech, Normal strength at 5/5 x4 extr, Normal tone, Normal affect - Studies Laboratory Data (last 24 hrs) 10/21/20 10:20: WBC 24.80 H* D, Hgb 16.9, Hct 48.9, Plt Count 315 D 10/21/20 10:20: Sodium 140, Potassium 4.4, BUN 14, Creatinine 1.11, Glucose 149 H, Total Bilirubin 0.7, AST 19, ALT 56, Alkaline Phosphatase 70, Lipase 78 Assessment and Plan - Plan Impression: Nausea, vomiting, diarrhea and abdominal pain secondary to suspected mild small bowel ileus complicated with recent laparoscopic appendectomy Leukocytosis likely related to above Plan: Patient will be admitted for further evaluation and treatment. Will continue IV fluids. We will keep the patient n.p.o. at this time. Patient reports some improvement. Patient did have a bowel movement in the emergency room. Due to elevated white count we will start IV Zosyn. Will provide medication for pain and nausea. Surgery will be consulted to further evaluate. Await recommendation. Encourage incentive spirometer. Encourage ambulation. Will provide DVT prophylaxisLovenox. Anticipate continued improvement over the next 24 hours. Discharge Plan: Home Plan to discharge in: 48 Hours - Advance Directives Does patient have a Living Will: No Does patient have a Durable POA for Healthcare: No - Code Status/Comfort Care Code Status Assessed: Yes (Patient is full code) Time Spent Managing Pts Care (In Minutes): 55
[2020-10-21] MEDS ORDERED: ACETAMINOPHEN 650MG/RECT SUPP PR PRN (15:27)
[2020-10-21 15:39] VITALS: O2SAT 100
[2020-10-21 15:41] VITALS: BMI 20.7
[2020-10-21] MEDS: NA CHLORIDE 0.9% 1,000 ML IV SCH ×2 (16:27→23:27)
[2020-10-21] MEDS ORDERED: PIPER/TAZO/NS 3.375gm 3.375 GM/100 ML BAG IVPB SCH (17:00)
[2020-10-21] MEDS: MORPHINE 2 MG/ML SYR IV PRN ×2 (17:20→22:35)
[2020-10-21] MEDS: ACETAMINOPHEN 500 MG TAB PO PRN (19:03)
[2020-10-21] MEDS: FAMOTIDINE 20 MG/2 ML VIAL IV SCH (20:09)
--- NOTE | 2020-10-21 21:06 | P.CNS ---
Date of Consult: 10/21/20 PC: I was asked to see this 30-year-old male regards to a postoperative ileus. HPC: This patient, was operated on by me last week. He had acute appendicitis. At that time inflamed appendix was removed laparoscopically. He was discharged home the following day, not on any antibiotics, with pain medicine ordered. He took very little pain medicine at home, and mostly took Advil and Motrin. He had not been feeling well for the last few days. He started having nausea and vomiting. His abdomen did not have any abdominal pain, and he was having regular bowel movements. He came in today however because his abdomen was distended in causing him considerable discomfort. PMH: Negative PSHx: Appendectomy a week ago SOC: No known allergies SYS REVIEW: Tania the mean doing well at home just tired and not feeling well O/E awake alert vital signs are stable HEENT: Nonicteric Chest: Air entry equal bilaterally ABD: Cali are clean, incisions have healed Soft nontender mildly tympanic LOCO: Intact DATA: Elevated white cell count, CT scan suggests possible ileus IMPRESSION: Abdominal pain, no evidence of any abscess or acute inflammatory process in the appendiceal area PLAN: Patient has been admitted at this time for IV fluids, antibiotics, and analgesia. We will recheck his labs in the a.m. med. Anticipate discharge soon.
[2020-10-21] MEDS: ONDANSETRON 4 MG/2 ML VIAL IV PRN (22:31)
[2020-10-21] MEDS: PIPER/TAZO/NS 3.375gm 3.375 GM/100 ML BAG IVPB SCH (22:35)
[2020-10-22] MEDS: ACETAMINOPHEN 500 MG TAB PO PRN ×3 (00:04→11:28)
[2020-10-22] MEDS: NA CHLORIDE 0.9% 1,000 ML IV SCH ×3 (02:02→14:14)
[2020-10-22 04:13] LABS: Absolute Lymphocytes (CBC) 0.4 K/uL (0.7-4.9); Basophils % 0.2 % (0-1.3); Hematocrit 36.9 % (39.6-49.0); Lymphocytes % 3.1 % (15.3-44.8); MPV 8.9 fL (7.6-11.3); RBC Red Blood Cell Count 4.28 M/uL (4.33-5.43)
[2020-10-22 04:31] LABS: Magnesium 1.6 mg/dL (1.8-2.4); Potassium 3.7 mmol/L (3.5-5.1)
[2020-10-22] MEDS: PIPER/TAZO/NS 3.375gm 3.375 GM/100 ML BAG IVPB SCH ×2 (06:08→14:00)
[2020-10-22] MEDS: ONDANSETRON 4 MG/2 ML VIAL IV PRN (06:15)
[2020-10-22] MEDS: MORPHINE 2 MG/ML SYR IV PRN (06:17)
[2020-10-22] MEDS ORDERED: MAGNESIUM SULFATE 1 gm IVPB 1 GM/100 ML BAG IV ONE (06:29)
[2020-10-22] MEDS: FAMOTIDINE 20 MG/2 ML VIAL IV SCH (08:31)
[2020-10-22 08:34] VITALS: TEMP 100.7
[2020-10-22 09:00] VITALS: BP 104/53
[2020-10-22] MEDS ORDERED: POTASSIUM 25 MEQ EFFERV TAB PO ONE (09:00)
[2020-10-22] MEDS ORDERED: ENOXAPARIN 40 MG/0.4 ML SQ SCH (09:00)
--- NOTE | 2020-10-22 12:44 | P.PN ---
Subjective Date of Service: 10/22/20 Primary Care Provider: none; Surgery-Dr. Kay Chief Complaint: Nausea, vomiting, abdominal pain Subjective: Improving Physical Examination - Vital Signs Temperature: 100.7 F Blood Pressure: 104/53 Pulse: 102 Respirations: 15 Pulse Ox (%): 93 Assessment & Plan Discharge Plan: Home Plan to discharge in: 24 Hours Physician Review Additional Text: Physical exam: Patient alert, cooperative. Still some nausea. Tolerating current diet. Heart: Regular rate and rhythm Lungs: Clear to auscultation Abdomen: Postsurgical changes noted. [place] in place. No significant distention. Less pain to the abdomen. Extremities: Good range of motion to the upper lower extremities. Impression: Nausea, vomiting, diarrhea and abdominal pain secondary to suspected mild small bowel ileus complicated with recent laparoscopic appendectomy Leukocytosis likely related to above Plan: Patient seems to have improved. Bowel movements noted. White count improved. Continue IV fluids and antibiotic therapy. Continue to advance diet. Encourage incentive spirometer. Encourage ambulation. DVT prophylaxis in place. Will discuss with surgery about the possibility of possible discharge later today or tomorrow if symptoms have resolved. Time Spent Managing Pts Care (In Minutes): 55
--- NOTE | 2020-10-22 16:08 | P.PN ---
Date of Service: 10/22/20 S: Patient feels much better today, has been up ambulating, abdominal issues seem to have dissipated. He is hungry, anxious to go home. O: Vital signs remain stable, abdomen is soft nontender clinically looks much improved A: Seems to have responded well to IV fluids P: Anticipate discharge the patient today. He will see me next Tuesday in my office. Once again he has been advised should any questions problems or issues to contact me or go directly to the emergency room. He understands and wants us to proceed.
--- NOTE | 2020-10-22 16:24 | P.DS ---
Admission Date: 10/21/20 Discharge Date: 10/22/20 Primary Care Provider: none; Surgery-Dr. Kay Disposition: ROUTINE DISCHARGE Discharge Condition: GOOD Reason for Admission: Nausea, vomiting, abdominal pain Consultations: Surgery-Dr. Kay Procedures: COVID: Negative CT Scan: FINDINGS: The lung bases are clear. The liver, spleen, pancreas, adrenal glands and kidneys are within normal limits. No bowel obstruction, free air, free fluid or abscess. Mild fluid-filled small bowel loops noted. Appendectomy. Surgical skin rebekah are present. No evidence of significant lymphadenopathy. No suspicious bony findings. IMPRESSION: No acute intra-abdominal or pelvic finding. A mild small bowel ileus is possible. Medical Problem List: Nausea, vomiting, diarrhea and abdominal pain secondary to suspected mild small bowel ileus complicated with recent laparoscopic appendectomy Leukocytosis likely related to above Brief History of Present Illness: 30-year-old male presented to the emergency room with nausea, vomiting, abdominal pain and diarrhea. Patient reports laparoscopic appendectomy on October 10. He reports after that time his bowel movements were slow. He did take some MiraLAX which improved. Patient had been doing well postoperatively but this morning woke up with increased nausea and vomiting. He reported diffuse abdominal pain. He also had some episode of diarrhea. Diarrhea was very watery. He denied any fever, shortness of breath, chest pain. Some chills noted. He reached out to his surgeon who recommended that the patient be seen in the ER for further evaluation. He was to follow-up with surgery today to have rebekah removed. In the ER patient was evaluated. White count elevated at 24,000. Hemoglobin stable. Sodium 140, potassium 4.4, BUN of 14, creatinine 1.1 with a GFR 77. G lucose 149. CT scan showed no bowel obstruction, free air, free fluid or abscess. Mild fluid-filled small bowel loops noted. No evidence of significant adenopathy. Mild small bowel ileus was suggested. Patient was given IV antiemetic therapy and pain medication. Patient was admitted for observation. Hospital Course: Patient was admitted for nausea, vomiting and diarrhea. Patient also had abdominal pain. Patient had recent laparoscopic appendectomy. CT scan revealed mild small bowel ileus. The patient was admitted for further evaluation. Surgery was consulted. Patient continue with IV fluids and antibiotic therapy. His diet was advanced. No surgical intervention was required. Patient has done well. At discharge patient will follow up with surgery in 1 week to follow-up his hospitalization. No need for antibiotic therapy at this time. Surgical instructions given prior to discharge. No heavy lifting, pushing or pulling recommended. Vital Signs/Physical Exam: Temp Pulse Resp BP Pulse Ox 100.7 F 102 H 15 104/53 L 93 10/22/20 12:44 10/22/20 12:44 10/22/20 12:44 10/22/20 12:44 10/22/20 12:44 General: Alert, In no apparent distress, Oriented x3, Cooperative HEENT: Atraumatic Neck: Supple Respiratory: Clear to auscultation bilaterally, Normal air movement Cardiovascular: Normal pulses, Regular rate/rhythm Gastrointestinal: Normal bowel sounds, Soft and benign, Non-distended, No tenderness, No masses, No rebound, No guarding Integumentary: No tenderness/swelling, No erythema, No warmth, No cyanosis Neurological: Normal speech, Normal strength at 5/5 x4 extr, Normal tone, Normal affect Laboratory Data at Discharge: WBC 11.80 K/uL (4.3-10.9) H D 10/22/20 03:44 Hgb 13.0 g/dL (13.6-17.9) L D 10/22/20 03:44 Hct 36.9 % (39.6-49.0) L D 10/22/20 03:44 Plt Count 210 K/uL (152-406) D 10/22/20 03:44 Sodium 138 mmol/L (136-145) 10/22/20 03:44 Potassium 3.7 mmol/L (3.5-5.1) 10/22/20 03:44 BUN 12 mg/dL (7-18) 10/22/20 03:44 Creatinine 1.03 mg/dL (0.55-1.3) 10/22/20 03:44 Glucose 118 mg/dL (74-106) H 10/22/20 03:44 Magnesium 1.6 mg/dL (1.8-2.4) L 10/22/20 03:44 Total Bilirubin 0.7 mg/dL (0.2-1.0) 10/21/20 10:20 AST 19 U/L (15-37) 10/21/20 10:20 ALT 56 U/L (12-78) 10/21/20 10:20 Alkaline Phosphatase 70 U/L (45-117) 10/21/20 10:20 Lipase 78 U/L (73-393) 10/21/20 10:20 Home Medications: NK [No Home Meds] 10/10/20 Physician Discharge Instructions: Patient will be discharged home. Recommend follow-up with surgery within 1 week to follow-up hospitalization. No heavy lifting, pushing or pulling. Patient may continue with a soft diet and then advance to regular. No need for surgical intervention at this time. No need for antibiotics. Continue with incentive spirometer at home. Diet: Regular Activity: Ad neto Followup: NONE,NONE [Primary Care Provider] - Time spent managing pt's care (in minutes): 55
== END 2020-10-22 17:12 | disposition home or self-care (01) ==
LOC: ER 09:45 → ERHOLD 12:56 → 2ND 15:13
PROVIDERS: ADMIT Family Medicine; ATTEND Family Medicine
DX: R11.2 Nausea with vomiting, unspecified (principal); R19.7 Diarrhea, unspecified; R10.84 Generalized abdominal pain; D72.829 Elevated white blood cell count, unspecified; F17.290 Nicotine dependence, other tobacco product, uncomplicated; J45.909 Unspecified asthma, uncomplicated; Z20.822 Contact with and (suspected) exposure to COVID-19
CPT/HCPCS: 96365; 96367; 96361; 87040 ×2; 85025 ×2; 80048 ×2; 36415; 83735; 80076; 83690; 74177; 94010; 96375; 99285; U0003; Q9967; J2765; J3475; J2543 ×2; J2270 ×3; J7030 ×4; J2405 ×3; J0744; G0378; J1650

== ENCOUNTER 2021-03-21 10:28 | Emergency (ER) | payer OTHER ==
[2021-03-21 10:57] LABS: Absolute Lymphocytes (CBC) 1.5 K/uL (0.7-4.9); Basophils % 0.8 % (0-1.3); Hematocrit 43.9 % (39.6-49.0); Lymphocytes % 20.4 % (15.3-44.8); MPV 8.1 fL (7.6-11.3); RBC Red Blood Cell Count 5.12 M/uL (4.33-5.43)
[2021-03-21] MEDS ORDERED: NA CHLORIDE 0.9% 1,000 ML ONE (11:12)
[2021-03-21] MEDS ORDERED: MORPHINE 4 MG/ML SYR ONE (11:12)
[2021-03-21] MEDS ORDERED: ONDANSETRON 4 MG/2 ML VIAL ONE (11:12)
--- NOTE | 2021-03-21 11:13 | RAD REPORT ---
EXAM DESCRIPTION: CT - Stone Protocol - 03/21/2021 11:02 am CLINICAL HISTORY: Flank pain. Abd pain;Flank pain COMPARISON: Abdomen Pelvis W Contrast dated 10/21/2020 TECHNIQUE: Axial images were obtained without oral or IV contrast. Lack of contrast limits solid org an and vascular assessment. The [id number] spans the entirety of the system partially obscuring uppermost abdomen and lung bases. Coronal reformatted images were obtained and reviewed. All CT scans are performed using dose optimization technique as appropriate and may include automated exposure control or mA/KV adjustment according to patient size. FINDINGS: The lower lung [place] are clear. Imaged portions of the liver and spleen show no suspicious findings on non-contrast imaging. The panc reas and adrenal glands are normal. No pathologic lymphadenopathy in the abdomen or pelvis. 3 mm stone is present in the proximal right ureter with mild right hydronephrosis. Additional punctat e caliceal stones are present bilaterally. No bowel obstruction, free air, free fluid or abscess. Appendectomy. No significant bony abnormality. IMPRESSION: 3 mm stone proximal right ureter with mild right hydronephrosis. Bilateral additional punctate caliceal stones are present.
[2021-03-21 11:30] LABS: Albumin 4.5 g/dL (3.4-5.0); Bilirubin Direct 0.3 mg/dL (0-0.2); Potassium 3.5 mmol/L (3.5-5.1); Protein, Total 7.9 g/dL (6.4-8.2)
[2021-03-21] MEDS ORDERED: KETOROLAC 30 MG/ML INJ ONE (11:38)
[2021-03-21] MEDS ORDERED: FENTANYL CITR 100 MCG/2 ML ONE ×2 (12:06→14:02)
[2021-03-21] MEDS ORDERED: MAGNESIUM SULFATE 1 gm IVPB 1 GM/100 ML BAG IV ONE (12:07)
[2021-03-21] MEDS ORDERED: TAMSULOSIN 0.4 MG SR CAP ONE (12:07)
[2021-03-21 14:23] LABS: Urine Blood 3+ (Negative); Urine Glucose Negative (Negative); Urine Protein 1+ (Negative); Urine Specific Gravity 1.025 (1.005-1.030)
--- NOTE | 2021-03-21 14:25 | ER ---
Nurse's Notes [facility] Name: Sameer Gaona Age: 31 yrs Sex: Male : 1990 Arrival Date: 03/21/2021 Time: 10:30 Bed 14 Private MD: Diagnosis: Calculus of ureter Presentation: 03/21 10:32 Chief complaint: Patient states: right mid back pain into abd since this morning , had iw diarrhea 2 days ago. Coronavirus screen: At this time, the client does not indicate any symptoms associated with coronavirus-19. Ebola Screen: Patient negative for fever greater than or equal to 101.5 degrees Fahrenheit, and additional compatible Ebola Virus Disease symptoms Patient denies exposure to infectious person. Patient denies travel to an Ebola-affected area in the 21 days before illness onset. No symptoms or risks identified at this time. Initial Sepsis Screen: Does the patient meet any 2 criteria? No. Patient's initial sepsis screen is negative. Does the patient have a suspected source of infection? No. Patient's initial sepsis screen is negative. Risk Assessment: Do you want to hurt yourself or someone else? Patient reports no desire to harm self or others. Onset of symptoms was March 21, 2021. 10:32 Method Of Arrival: Ambulatory iw 10:32 Acuity: LAINEY 3 iw Triage Assessment: 11:00 General: Appears distressed, uncomfortable. kh1 11:00 Pain: Complains of pain in back Pain radiates to abdomen. GI: No deficits noted. kh1 11:04 General: Behavior is agitated, restless. 1 Historical: - Allergies: 10:33 No Known Allergies; iw - Home Meds: 10:33 None [Active]; iw - PMHx: 10:33 Asthma; iw - PSHx: 10:33 Appendectomy; iw - Immunization history:: Client reports having NOT received the Covid vaccine. - Social history:: Smoking status: Reported history of juuling and/or vaping. Screenin:03 Abuse screen: Denies threats or abuse. Nutritional screening: No deficits noted. kh1 Tuberculosis screening: No symptoms or risk factors identified. Fall Risk IV access (20 points). Assessment: 11:56 GI: Bowel sounds present X 4 quads. Abd is soft and non tender in left upper quadrant kh1 and left lower quadrant abd tender lower right quadrant. Vital Signs: 10:33 BP 137 / 85; Pulse 95; Resp 16; Temp 96.8; Pulse Ox 98% on R/A; Weight 68.04 kg; Height iw 5 ft. 10 in. (177.80 cm); Pain 10/10; 11:57 BP 132 / 88; Pulse 87; Resp 24; Temp 98.1(TE); Pulse Ox 98% on R/A; kh1 12:40 BP 103 / 83; Pulse 88; Resp 20; Pulse Ox 100% on R/A; kh1 14:51 BP 138 / 95; Pulse 94; Resp 16; Temp 98.0; Pulse Ox 97% on R/A; kh1 10:33 Body Mass Index 21.52 (68.04 kg, 177.80 cm) iw ED Course: 10:30 Patient arrived in ED. ds1 10:33 Triage completed. iw 10:34 Robyn Baumann FNP-C is PHCP. kb 10:34 Wiley Beatty MD is Attending Physician. kb 10:45 Liv Wolff is Primary Nurse. kh1 10:59 CT Stone Protocol Sent. kh1 10:59 Basic Metabolic Panel Sent. kh1 11:01 Arm band placed on right wrist. kh1 11:02 CT Stone Protocol In Process Unspecified. EDMS 11:03 No provider procedures requiring assistance completed. kh1 11:03 Inserted saline lock: 20 gauge in right antecubital area, using aseptic technique. kh1 Blood collected. 11:03 Patient has correct armband on for positive identification. Bed in low position. Call [facility] light in reach. Side rails up X 1. 11:12 Hepatic Function Sent. kh1 11:12 Lipase Sent. kh1 14:52 intact, bleeding controlled, No redness/swelling at site. Pressure dressing applied. kh1 Administered Medications: 10:55 Drug: NS 0.9% 1000 ml Route: IV; Rate: 1000 ml; Site: right antecubital; kh1 10:55 Drug: Zofran (Ondansetron) 4 mg Route: IVP; Site: right antecubital; kh1 10:55 Drug: morphine 4 mg Route: IVP; Site: right antecubital; kh1 11:20 Drug: Ketorolac 30 mg Route: IVP; Site: right antecubital; iw 11:55 Drug: fentaNYL (PF) 25 mcg Route: IVP; Site: right antecubital; 1 11:55 Drug: Magnesium Sulfate 1 grams Route: IVPB; Infused Over: 30 mins; Site: right 1 antecubital; 11:55 Drug: Flomax (tamsulosin) 0.4 mg Route: PO; kh1 13:00 Drug: NS 0.9% 1000 ml Route: IV; Rate: 1000 ml; Site: right antecubital; 1 13:44 Drug: fentaNYL (PF) 25 mcg Route: IVP; Site: right antecubital; 1 Outcome: 12:02 Condition: improved kh1 14:24 Discharge ordered by . renee 14:52 Discharged to home ambulatory. 1 14:52 Discharge instructions given to patient, Instructed on discharge instructions, follow up and referral plans. medication usage. 14:59 Patient left the ED. iw Signatures: Dispatcher [employer] EDRobyn Lee, NEFTALI GARCIAP-Susan Carlton ds1 Marleny Kirby, AMINA RN Liv Araujo [facility]
--- NOTE | 2021-03-21 14:25 | EDPHYS ---
Physician Documentation [facility] Name: Sameer Gaona Age: 31 yrs Sex: Male : 1990 Arrival Date: 03/21/2021 Time: 10:30 Bed 14 Private MD: ED Physician Wiley Beatty HPI: 03/21 14:54 This 31 yrs old Male presents to ER via Ambulatory with complaints of kb Abdominal Pain, Back Pain. 14:54 The patient has not experienced similar symptoms in the past. The patient has not kb recently seen a physician. 14:54 The patient complains of pain in the right flank. The pain radiates to the right lower kb quadrant. Onset: The symptoms/episode began/occurred just prior to arrival. Modifying factors: The symptoms are alleviated by nothing. the symptoms are aggravated by nothing. Associated signs and symptoms: Pertinent positives: nausea. Severity of pain: At its worst the pain was moderate in the emergency department the pain is unchanged. Historical: - Allergies: 10:33 No Known Allergies; iw - Home Meds: 10:33 None [Active]; iw - PMHx: 10:33 Asthma; iw - PSHx: 10:33 Appendectomy; iw - Immunization history:: Client reports having NOT received the Covid vaccine. - Social history:: Smoking status: Reported history of juuling and/or vaping. ROS: 14:54 Constitutional: Negative for fever, chills, and weight loss. kb 14:54 Abdomen/GI: Positive for abdominal pain, nausea. 14:54 : Positive for flank pain. 14:54 All other systems are negative. Exam: 14:52 Constitutional: This is a well developed, well nourished patient who is awake, alert, kb and in no acute distress. Head/Face: Normocephalic, atraumatic. ENT: Moist Mucous membranes Respiratory: Respirations even and unlabored. No increased work of breathing, no retractions or nasal flaring. Skin: Warm, dry with normal turgor. Normal color. MS/ Extremity: Pulses equal, no cyanosis. Neurovascular intact. Full, normal range of motion. Neuro: Awake and alert, GCS 15, oriented to person, place, time, and situation. Moves all extremities. Normal gait. Psych: Awake, alert, with orientation to person, place and time. Behavior, mood, and affect are within normal limits. 14:52 Abdomen/GI: Inspection: abdomen appears normal, Bowel sounds: normal, Palpation: soft, in all quadrants, moderate abdominal tenderness, in the right lower quadrant. 14:52 Back: CVA tenderness, that is mild, is noted on the right. Vital Signs: 10:33 BP 137 / 85; Pulse 95; Resp 16; Temp 96.8; Pulse Ox 98% on R/A; Weight 68.04 kg; Height iw 5 ft. 10 in. (177.80 cm); Pain 10/10; 11:57 BP 132 / 88; Pulse 87; Resp 24; Temp 98.1(TE); Pulse Ox 98% on R/A; kh1 12:40 BP 103 / 83; Pulse 88; Resp 20; Pulse Ox 100% on R/A; kh1 14:51 BP 138 / 95; Pulse 94; Resp 16; Temp 98.0; Pulse Ox 97% on R/A; kh1 10:33 Body Mass Index 21.52 (68.04 kg, 177.80 cm) iw MDM: 10:34 Patient medically screened. divya 13:46 Data reviewed: vital signs, nurses notes. Data interpreted: Pulse oximetry: on room air kb is 100 %. Interpretation: normal. Counseling: I had a detailed discussion with the patient and/or guardian regarding: the historical points, exam findings, and any diagnostic results supporting the discharge/admit diagnosis, lab results, radiology results, the need for outpatient follow up, a urologist, to return to the emergency department if symptoms worsen or persist or if there are any questions or concerns that arise at home. ED course: Awaiting urine sample. 13:48 ED course: Pt appears comfortable at this time. . kb 03/21 10:35 Order name: Basic Metabolic Panel; Complete Time: 11:35 kb 03/21 10:35 Order name: CBC with Diff; Complete Time: 11:01 kb 03/21 10:35 Order name: Hepatic Function; Complete Time: 11:35 kb 03/21 10:35 Order name: Lipase; Complete Time: 11:35 kb 03/21 10:38 Order name: CT Stone Protocol; Complete Time: 11:14 kb 03/21 14:22 Order name: Urine Dipstick-Ancillary; Complete Time: 14:24 EDMS 03/21 10:35 Order name: IV Saline Lock; Complete Time: 10:59 kb 03/21 10:35 Order name: Labs collected and sent; Complete Time: 10:59 kb 03/21 10:38 Order name: Urine Dipstick-Ancillary (obtain specimen) kb Administered Medications: 10:55 Drug: NS 0.9% 1000 ml Route: IV; Rate: 1000 ml; Site: right antecubital; 1 10:55 Drug: Zofran (Ondansetron) 4 mg Route: IVP; Site: right antecubital; 1 10:55 Drug: morphine 4 mg Route: IVP; Site: right antecubital; 1 11:20 Drug: Ketorolac 30 mg Route: IVP; Site: right antecubital; 11:55 Drug: fentaNYL (PF) 25 mcg Route: IVP; Site: right antecubital; 1 11:55 Drug: Magnesium Sulfate 1 grams Route: IVPB; Infused Over: 30 mins; Site: right 1 antecubital; 11:55 Drug: Flomax (tamsulosin) 0.4 mg Route: PO; 1 13:00 Drug: NS 0.9% 1000 ml Route: IV; Rate: 1000 ml; Site: right antecubital; 1 13:44 Drug: fentaNYL (PF) 25 mcg Route: IVP; Site: right antecubital; [facility] Disposition: 03/22 08:31 Co-signature as Attending Physician, Wiley Beatty MD I agree with the assessment and divya plan of care. Disposition Summary: 03/21/21 14:24 Discharge Ordered Location: Home kb Condition: Stable kb Diagnosis - Calculus of ureter kb Followup: kb - With: Emergency Department - When: As needed - Reason: Worsening of condition Followup: kb - With: Private Physician - When: 2 - 3 days - Reason: Recheck today's complaints, Continuance of care, Re-evaluation by your physician Discharge Instructions: - Discharge Summary Sheet kb - Kidney Stones, [id number] kb - Dietary Guidelines to Help Prevent Kidney Stones kb Forms: - Medication Reconciliation Form kb - Thank You Letter kb - Antibiotic Education kb - Prescription Opioid Use kb - Work release form eb Prescriptions: - Flomax 0.4 mg Oral capsule - take 1 capsule by ORAL route once daily 1/2 hour following the same meal each kb day; 10 capsule; Refills: 0, Product Selection Permitted - Zofran 4 mg Oral Tablet - take 1 tablet by ORAL route every 6 hours As needed; 20 tablet; Refills: 0, kb Product Selection Permitted - Diclofenac Sodium 75 mg Oral tablet,delayed release (DR/EC) - take 1 tablet by ORAL route 2 times per day As needed; 30 tablet; Refills: 0, kb Product Selection Permitted Signatures: Dispatcher [employer] Robyn Guzman, SIGNAL MAINTAINER-C SIGNAL MAINTAINER-Wiley Hidalgo MD MD cha Williams, Irene, AMINA RN Liv Araujo [facility]
[2021-03-21 15:09] VITALS: BP 138/95; TEMP 98; O2SAT 97
== END 2021-03-21 14:59 | disposition home or self-care (01) ==
LOC: ER 10:28
DX: N20.1 Calculus of ureter (principal)
CPT/HCPCS: 85025; 80048; 36415; 80076; 81003; 83690; 76377; 74176; 96375; 96374; 99284; J3010 ×2; J3475; J7030; J2405